=== PATIENT | female | born 1970 | race Caucasian/White ===

== ENCOUNTER → 2016-12-26 | Outpatient (CLI) | payer MEDICARE ==
[~2016-12-26] MED LIST: ALBUTEROL17 GM INH; ALBUTEROL2.5 MG/0.5 IH; BENTYL20 MG PO; CIPROFLOXACIN500 M1 PO; DUONEB 2.5-0.5 M3 ML NEB; ESKALITH PO; FAMOTIDINE PO; FLEXERIL10 MG PO; GABAPENTIN300 MG PO; GEODAN PO; GEODON20 MG PO; GLIPIZIDE10 MG PO; HYDROXYZINE HCL50 MG PO; LAMICTAL PO; LIPITOR PO; LIPITOR20 MG PO; LISINOPRIL PO; LISINOPRIL10 MG PO; LITHIUM CARBON300 M1 PO; LITHIUM PO; METFORMIN HCL500 M1 PO; METFORMIN PO; METHYLPHENIDATE10 M1 PO; MOTRIN600 MG PO; NAPROXEN PO; NORCO 5/325 TAB1 TAB PO; NORCO 7.5-3251 EACH PO; PREDNISONE PO; PRILOSEC PO; PRILOSEC20 M1 PO; PROVENTIL; QVAR7.3 GM INH; RISPERIDONE1 MG PO; SEROQUEL PO; SODIUM BICARBO650 MG PO; TOPAMAX PO; TOPIRAMATE100 MG PO; TRAZODONE PO; UL PHARMACY; VICODIN 5/1 TAB 5/50 PO; ZITHROMAX1 G/PKT PO
--- NOTE | ~2016-12-26 | MY29 ---
[facility] A Service of [facility] RADIOLOGY TEXT RESULTS PATIENT: YUE MOSS LOCATION: [facility] : 74 UNIT #: [id number] AGE: [address]: MIKE BAIRES APR SEX: F ORDER DR: [id number] [facility] [address] [place], [place] [address] [id number] O MR#: [id number] Acc #: [id number] NAME: YUE MOSS : 1970 SEX: F STUDY DATE/TIME: 12/26/2016 13:11 UNIT: [facility] ROOM: STUDY DESCRIPTION: MY [facility] SCREENING W/ CAD BILAT Attending Physician: Mike Baires Aprn Referring Physician: Mike Baires Aprn Ordering Physician: Mike Baires Aprn Primary Care Physician: Mike Baires Aprn MEDICAL IMAGING REPORT This report is preliminary unless electronic signature is present EXAM Bilateral digital screening mammogram with CAD. DATE 12/26/2016 HISTORY No personal or family history of breast cancer or current complaints. COMPARISON Bilateral digital diagnostic mammogram, 01/31/2005. FINDINGS CC and MLO views were obtained of each breast utilizing digital technique and reviewed with an FDA-approved CAD device. Scattered fibroglandular densities are present bilaterally. Breast parenchyma is slightly more fatty replaced than on the 2005 examination. No new or suspicious nodule, architectural distortion, or clustered microcalcification is seen. Fibronodular density in the inferior right breast on the MLO view appears stable since 2004, in keeping with a benign finding. IMPRESSION BIRADS category 2. Benign findings. Routine bilateral screening mammogram is recommended in 1 year. Patients over the age of 40 are entered into a reminder system with target due date for the next mammogram. A result letter will also be sent to the patient. BIRADS: 2 Benign finding. [facility] A Service [facility] RADIOLOGY TEXT RESULTS PATIENT: YUE MOSS LOCATION: [facility] : 74 UNIT #: [id number] AGE: [address]: MIKE BAIRES APR SEX: F ORDER DR: Dictated by... Orquidea Rothman M.D. THIS IS AN ELECTRONICALLY VERIFIED REPORT Orquidea Rothman M.D. at 12/27/2016 9:00 AM MAXIMINO/sharad TD: 12/26/2016 15:15 JOB #: [id number] MEDICAL IMAGING REPORT Page 1 of 1 COPY
== END | disposition home or self-care (01) ==
LOC: CWCC 12:38
DX: Z12.31 Encounter for screening mammogram for malignant neoplasm of breast (principal)
CPT/HCPCS: G0202

== ENCOUNTER 2017-03-12 21:17 | Emergency (ER) | payer MEDICARE ==
[~2017-03-12] VITALS: Ht 162.6 cm; Wt 86.2 kg
--- NOTE | ~2017-03-12 | CR2 ---
[facility] A Service of [facility] RADIOLOGY TEXT RESULTS PATIENT: YUE MOSS LOCATION: [facility] : 74 UNIT #: [id number] AGE: [address]: Jarad Peace MD SEX: F ORDER DR: [id number] [facility] [address] [place], [place] [address] [id number] E MR#: [id number] Acc #: [id number] NAME: YUE MOSS : 1970 SEX: F STUDY DATE/TIME: 03/12/2017 23:47 UNIT: [facility] ROOM: STUDY DESCRIPTION: CR Abdomen Acute Series Attending Physician: Jarad Peace M.D. Ordering Physician: Jarad Peace M.D. Primary Care Physician: Autumn Baires Aprn MEDICAL IMAGING REPORT This report is preliminary unless electronic signature is present EXAM Acute abdomen series HISTORY Abdomen pain and bloating today. FINDINGS Flat upright views of the abdomen and upright view of the chest demonstrate the bowel gas pattern is normal. Surgical clips in the right upper quadrant. No free air. Upright view of the chest demonstrates the cardiac size and pulmonary vascularity are normal. Lungs are clear. IMPRESSION 1. No acute findings. Bowel gas pattern is normal. 2. Lungs are clear. Dictated by... Andres Bustillos M.D. THIS IS AN ELECTRONICALLY VERIFIED REPORT Andres Bustillos M.D. at 03/14/2017 4:14 AM BAMBI/montrell TD: 03/13/2017 08:48 JOB #: [id number] MEDICAL IMAGING REPORT Page 1 of 1 COPY
[2017-03-12 23:32] LABS: URINE SOURCE CLEAN CATCH
[2017-03-12 23:39] LABS: URINE APPEARANCE CLOUDY; URINE BILIRUBIN NEG (NEG); URINE BLOOD NEG (NEG); URINE COLOR YELLOW; URINE GLUCOSE NEG (NEG); URINE KETONE 1+ (NEG); URINE LEUKOCYTE ESTERASE NEG (NEG); URINE NITRATE NEG (NEG); URINE PH 7.5 (5-8); URINE PROTEIN 1+ (NEG); URINE SPECIFIC GRAVITY 1.021 (1.003-1.035); URINE UROBILINOGEN 0.2 MG/DL (NEG)
[2017-03-12 23:42] LABS: CULTURE INDICATED? YES; URINE BACTERIA AUWI 1+ (NEGATIVE); URINE SQUAMOUS EPITHELIAL CELL MOD /[HPF]; UWBCS1 AUWI 0-2 (0-5)
[2017-03-13 00:19] LABS: BASOPHIL# 0.2 X10e3 (0-0.3); BASOPHIL% 1.3 % (0-2.5); DIFF IND YES; HEMATOCRIT 43.9 % (35.0-45.0); HEMOGLOBIN 14.6 gm/dL (12.0-16.0); LYMPHOCYTE# 1.4 X10e3 (1.0-3.5); LYMPHOCYTE% 8.2 % (17.0-45.0); MEAN CELL VOLUME 92.6 FL (83-96); MEAN CORPUSCULAR HEMOGLOBIN 30.8 PG (28-34); MEAN CORPUSCULAR HGB CONC 33.3 g/dL (30-36); MEAN PLATELET VOLUME 7.4 FL (6.5-11.5); MONOCYTE# 0.3 X10e3 (0-1.0); MONOCYTE% 1.9 % (3.0-12.0); NEUTROPHIL# 14.9 X10e3 (1.5-7.1); NEUTROPHIL% 88.6 % (40-75); PLATELET COUNT 334 X10e3 (140-420); RED BLOOD COUNT 4.75 X10e (3.90-5.30); RED CELL DISTRIBUTION WIDTH 14.2 % (11.0-15.5); WHITE BLOOD COUNT 16.8 X10e3 (4.0-10.5)
[2017-03-13 00:40] LABS: ANISOCYTOSIS SL; PLATELET ESTIMATE NORMAL (NORMAL)
[2017-03-13 00:45] LABS: ALBUMIN SERUM 4.2 g/dL (3.5-5.0); BILIRUBIN, DIRECT 0.1 mg/dL (0.0-0.2); BILIRUBIN,INDIRECT 0.6 mg/dL (0.0-0.9); BILIRUBIN,TOTAL 0.7 mg/dL (0.2-2.0); CALCIUM SERUM 9.5 mg/dL (8.4-10.2); GLOM FILT RATE Estimated 68.5 mL/min (>60); POTASSIUM 4.2 mmol/L (3.5-5.1); PROTEIN TOTAL SERUM 7.2 g/dL (6.0-8.3)
== END 2017-03-13 01:20 | disposition home or self-care (01) ==
LOC: CED 21:17
DX: G89.18 Other acute postprocedural pain (principal); R10.9 Unspecified abdominal pain; K21.9 Gastro-esophageal reflux disease without esophagitis; I10 Essential (primary) hypertension; J45.909 Unspecified asthma, uncomplicated; F31.9 Bipolar disorder, unspecified; G40.909 Epilepsy, unspecified, not intractable, without status epilepticus; Z90.49 Acquired absence of other specified parts of digestive tract; Z90.710 Acquired absence of both cervix and uterus; F17.200 Nicotine dependence, unspecified, uncomplicated; E11.9 Type 2 diabetes mellitus without complications
CPT/HCPCS: 36415; 74022; 80048; 80076; 81003; 82150; 83690; 85025; 87086; 96361; 96374; 96375; 99284; C9113; J2270; J2405; J2765